=== PATIENT | female | born 1990 | race Caucasian/White ===

== ENCOUNTER 2019-05-01 17:15 | Emergency (ER) | payer MEDICAID, OTHER ==
[~2019-05-01] VITALS: Ht 165.1 cm; Wt 99.8 kg
[~2019-05-01 17:15] MED LIST: PREN-385 PO; [UNRECOGNIZED DRUG - CODE] PO
--- NOTE | 2019-05-01 17:18 | NUR ---
PT TAKEN TO BED 7.
[2019-05-01 17:20] VITALS: BP 107/38
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
--- NOTE | 2019-05-01 19:08 | NUR ---
Dr. Patel examining patient.
--- NOTE | 2019-05-01 19:08 | NUR ---
Samina stubbs in ED - 05/01/[address] DE SOUZA IS EVALUATING PT AT BEDSIDE.
--- NOTE | 2019-05-01 19:20 | NUR ---
Pt report given to SEAN Hicks. Transfer of care at this time.
--- NOTE | 2019-05-01 19:22 | NUR ---
EKG PERFORMED ON PT AT BEDSIDE. PT REQUESTED PROCEDURE PERFORMED BY FEMALE, SEAN ESQUIVEL
[2019-05-01 20:58] VITALS: BP 114/62
--- NOTE | 2019-05-01 20:59 | NUR ---
Patient discharged with v/s stable. Written and verbal after care instructions given and explained. Patient verbalized understanding. Ambulatory with steady gait. All questions addressed prior to discharge. Advised to follow up with PMD.
== END 2019-05-01 20:59 | disposition home or self-care (01) ==
LOC: MED 17:15
DX: R55 Syncope and collapse (principal); Z79.899 Other long term (current) drug therapy
CPT/HCPCS: 81002; 81025; 93005; 99284